=== PATIENT | female | born 1990 | race American Indian/Alaskan Native ===

== ENCOUNTER 2021-07-05 12:09 | Emergency (ER) | payer OTHER ==
[2021-07-05] MEDS ORDERED: HALOPERIDOL LACTATE 5 MG/1 ML INJ IV ONE (12:15)
[2021-07-05] MEDS ORDERED: SODIUM CHLORIDE 0.9% 1000 ML 1,000 ML IV ONE (12:15)
--- NOTE | 2021-07-05 12:20 | Emergency Department Report ---
ED General Adult HPI - General Chief complaint: Nausea/Vomiting/Diarrhea Stated complaint: ABD PAIN Time Seen by Provider: 07/05/21 12:14 Source: EMS Mode of arrival: Stretcher Limitations: No Limitations - History of Present Illness Initial comments: Patient presents by ambulance secondary to abdominal pain. EMS was called to [place] because the patient was trying to check herself in due to chronic abdominal pain. She states that she "cannot live like this." She states that since 2007 she has had epigastric pain that has been recurrent and intermittent. She has been seen numerous times in multiple facilities. She has had endoscopy and imaging done. No diagnosis has been made. Regardless, she still has these ongoing episodes. There is no hematemesis or coffee-ground emesis associated with this. She states that she was going to [place] to try to get off of marijuana. When she quits smoking she states that she has the symptoms. There is no family history of GI issue. Patient has no trauma that preceded her symptoms starting in 2007. She has not noticed any aggravating factors other than the cessation of marijuana. She states that she when she moves and rocks, her pain feels better. Severity scale (0 -10): 4 - Related Data Previous Rx's Medication Instructions Recorded Last Taken Type Dicyclomine [Bentyl] 20 mg PO QID PRN #30 tablet 07/05/21 Unknown Rx Metoclopramide [Reglan] 10 mg PO ACHS PRN #30 tablet 07/05/21 Unknown Rx Allergies Allergy/AdvReac Type Severity Reaction Status Date / Time No Known Allergies Allergy Unverified 07/05/21 12:15 ED Review of Systems ROS: Stated complaint: ABD PAIN Other details as noted in HPI Comment: All other systems reviewed and negative Constitutional: denies: fever Eyes: denies: vision change ENT: denies: epistaxis Respiratory: denies: cough Cardiovascular: denies: chest pain Endocrine: denies: unexplained weight loss Gastrointestinal: as per HPI Genitourinary: denies: dysuria Musculoskeletal: denies: back pain Skin: denies: rash Neurological: denies: headache Hematological/Lymphatic: denies: easy bruising ED Past Medical Hx - Past Medical History Additional medical history: Chronic abdominal pain - Family History Family history: no significant - Social History Smoking Status: Never Smoker Substance Use Type: Marijuana (Habitual daily use) - Medications Home Medications: Home Medications Medication Instructions Recorded Confirmed Last Taken Type Dicyclomine [Bentyl] 20 mg PO QID PRN #30 tablet 07/05/21 Unknown Rx Metoclopramide [Reglan] 10 mg PO ACHS PRN #30 tablet 07/05/21 Unknown Rx ED Physical Exam - General Limitations: No Limitations, Other (Pulse ox noted and normal) General appearance: alert, other (Patient is rocking back and forth on the bed) - Head Head exam: Present: atraumatic, normocephalic - Eye Eye exam: Present: normal appearance, PERRL, EOMI. Absent: scleral icterus - ENT ENT exam: Present: normal orophraynx, normal external ear exam - Neck Neck exam: Present: normal inspection. Absent: meningismus - Respiratory Respiratory exam: Present: normal lung sounds bilaterally. Absent: respiratory distress - Cardiovascular Cardiovascular Exam: Present: regular rate, normal rhythm - GI/Abdominal GI/Abdominal exam: Present: soft, tenderness (Epigastric). Absent: distended, guarding, rebound - Extremities Exam Extremities exam: Present: normal capillary refill - Back Exam Back exam: Absent: CVA tenderness (R), CVA tenderness (L) - Neurological Exam Neurological exam: Present: alert, oriented X3, CN II-XII intact. Absent: motor sensory deficit - Psychiatric Psychiatric exam: Present: anxious, other (Tearful) - Skin Skin exam: Present: warm, dry ED Course Vital Signs 07/05/21 07/05/21 07/05/21 12:16 12:43 12:47 Temperature 98.5 F Pulse Rate 60 Respiratory 16 Rate Blood Pressure 116/70 [Left] O2 Sat by Pulse 100 100 98 Oximetry - Reevaluation(s) Reevaluation #1: 07/05/21 12:17 EMS was met upon arrival. IV and labs were ordered. Old records reviewed. Reevaluation #2: 07/05/21 13:23 CBC and test have been noted. Chemistries are pending. Reevaluation #3: 07/05/21 13:35 symptoms had improved. Abdomen was soft and nontender. Patient still stated that she had pain and ketorolac was ordered. Patient was discharged. ED Medical Decision Making - Lab Data Result diagrams: 07/05/21 12:39 07/05/21 12:39 - Medical Decision Making Patient presents with acute exacerbation of chronic symptoms and abdominal pain. I believe part of this could be related to habitual marijuana use. She does not clinically have peritoneal signs. There is no distention or tympany to suggest bowel obstruction. She does not have a positive test so ectopic is excluded. Patient will be able to be discharged. We have discussed avoidance of marijuana. We discussed outpatient follow-up. We will treat her symptomatically and refer her for ongoing management. Clinically, there is no evidence of acute hepatitis or pancreatitis. She does not appear to be septic or toxic. She is not suicidal or homicidal. Patient does not require psychiatric evaluation or admission. Critical Care Time: No Critical care attestation.: If time is entered above; I have spent that time in minutes in the direct care of this critically ill patient, excluding procedure time. ED Disposition Clinical Impression: Chronic abdominal pain, Marijuana use Disposition: 01 HOME / SELF CARE / HOMELESS Is pt being admited?: No Condition: Stable Instructions: Cannabis Use Disorder, Abdominal Pain, Adult, [id number], Chronic Pain, Adult Additional Instructions: Drink plenty of water. Have a bland diet. Return for problems. Follow-up with your regular doctor and the GI doctor. Stop using marijuana. Prescriptions: Dicyclomine [Bentyl] 20 mg PO QID PRN #30 tablet PRN Reason: abd pain Metoclopramide [Reglan] 10 mg PO ACHS PRN #30 tablet PRN Reason: Nausea Referrals: PRIMARY CARE, [Referring] - 3-5 Days AYE HAWKINS MD [Staff Physician] - 3-5 Days KADIE PEGUERO MD [Staff Physician] - 3-5 Days
[2021-07-05 13:05] LABS: Hematocrit 40.3 % (30.3-42.9); Hemoglobin 13.3 gm/dl (10.1-14.3); Mean Corpuscular HGB Conc 33 % (30-34); Mean Corpuscular Volume 97 fl (79-97); Platelet Count 280 K/mm3 (140-440); Red Blood Count 4.14 M/mm3 (3.65-5.03); Red Cell Distribution Width 13.1 % (13.2-15.2)
[2021-07-05 13:25] LABS: Alanine Aminotransferase 28 units/L (7-56); Albumin 4.1 g/dL (3.9-5); BUN/Creatinine Ratio 18; Blood Urea Nitrogen 16 mg/dL (7-17); Calcium 8.9 mg/dL (8.4-10.2); Hemolysis Index 12
[2021-07-05] MEDS ORDERED: POTASSIUM CHLORIDE ER 20 MEQ TAB PO ONE (13:31)
[2021-07-05] MEDS ORDERED: KETOROLAC 30 MG/1 ML INJ IV ONE (13:35)
[2021-07-05 15:16] VITALS: BP 113/71
== END 2021-07-05 15:17 | disposition home or self-care (01) ==
LOC: ED 12:09
DX: G89.29 Other chronic pain (principal); R10.9 Unspecified abdominal pain; F12.90 Cannabis use, unspecified, uncomplicated
CPT/HCPCS: 36415; 80053; 83690; 84703; 85027; 96361; 96374; 96375; 99284; J1630; J1885; J7030; Q0162